=== PATIENT | female | born 1960 | race African-American/Black ===

== ENCOUNTER 2018-05-15 15:15 | Emergency (ER) | payer MEDICAID ==
[~2018-05-15] VITALS: Ht 149.9 cm; Wt 75.0 kg
[2018-05-15 15:56] VITALS: BP 138/89
== END 2018-05-15 23:07 | disposition left against medical advice (07) ==
LOC: ER 15:15
DX: M54.5 Low back pain (principal); R22.42 Localized swelling, mass and lump, left lower limb
CPT/HCPCS: 99281

== ENCOUNTER 2019-09-10 16:51 | Emergency (ER) | payer MEDICAID ==
[~2019-09-10] VITALS: Ht 160 cm; Wt 65.0 kg
[2019-09-10] MEDS ORDERED: KETOROLAC 60MG/2ML VIAL IM ONE (17:30)
[2019-09-10 17:46] VITALS: BP 135/69
== END 2019-09-10 18:28 | disposition home or self-care (01) ==
LOC: ER 16:51
DX: M25.572 Pain in left ankle and joints of left foot (principal); M85.872 Other specified disorders of bone density and structure, left ankle and foot; I10 Essential (primary) hypertension; F12.10 Cannabis abuse, uncomplicated
CPT/HCPCS: 73610; 96372; 99283; J1885

== ENCOUNTER 2021-07-06 15:16 | Emergency (ER) | payer MEDICAID ==
[~2021-07-06] VITALS: Ht 149.9 cm; Wt 61.0 kg
[2021-07-06] MEDS ORDERED: DIPH25CA83 PO (17:12)
[2021-07-06] MEDS ORDERED: CEPH500C2 PO (17:12)
[2021-07-06] MEDS ORDERED: HYDR453.3 TP (17:12)
[2021-07-06] MEDS ORDERED: METHYLPREDNISOLONE SOD SUCC 125 MG/2 ML VIAL IM NR (17:15)
[2021-07-06 17:22] VITALS: BP 140/78
== END 2021-07-06 17:22 | disposition home or self-care (01) ==
LOC: ER 15:16
DX: S00.86XA Insect bite (nonvenomous) of other part of head, initial encounter (principal); L03.113 Cellulitis of right upper limb; I10 Essential (primary) hypertension; F12.10 Cannabis abuse, uncomplicated; W57.XXXA Bitten or stung by nonvenomous insect and other nonvenomous arthropods, initial encounter; Y93.89 Activity, other specified; Y92.89 Other specified places as the place of occurrence of the external cause; Y99.8 Other external cause status; Z88.6 Allergy status to analgesic agent
CPT/HCPCS: 96372; 99283; J2930

== ENCOUNTER 2023-08-06 11:19 | Emergency (ER) | payer MEDICAID, OTHER ==
[~2023-08-06] VITALS: Ht 149.9 cm; Wt 57.0 kg
[~2023-08-06 11:19] MED LIST: CEPH500C2 PO; DIPH25CA83 PO; HYDR453.3 TP
[2023-08-06 11:44] VITALS: BP 153/84; PULSE 90; RESP 18; TEMP 98.4; O2SAT 96
[2023-08-06] MEDS ORDERED: ACETAMINOPHEN 650MG/20.3ML UDC PO ONE (12:30)
[2023-08-06] MEDS ORDERED: CYCL25PO15 MT (12:44)
[2023-08-06] MEDS ORDERED: ACET-2708 MT (12:44)
== END 2023-08-06 13:22 | disposition home or self-care (01) ==
LOC: ER 11:39
DX: M25.551 Pain in right hip (principal); F12.10 Cannabis abuse, uncomplicated; Z88.6 Allergy status to analgesic agent
CPT/HCPCS: 99282

== ENCOUNTER 2023-08-13 10:19 | Emergency (ER) | payer MEDICAID, OTHER ==
[~2023-08-13] VITALS: Ht 149.9 cm; Wt 65.0 kg
[~2023-08-13 10:19] MED LIST changes: +ACET-2708 MT; +CYCL25PO15 MT
[2023-08-13 10:23] VITALS: O2SAT 99
[2023-08-13] MEDS ORDERED: KETOROLAC 30MG/ML VIAL IM ONE (11:00)
[2023-08-13] MEDS ORDERED: T3 PO (11:42)
[2023-08-13 12:09] VITALS: BP 138/67; PULSE 72; RESP 16; TEMP 98
== END 2023-08-13 12:09 | disposition home or self-care (01) ==
LOC: ER 10:19
DX: M79.604 Pain in right leg (principal); F12.10 Cannabis abuse, uncomplicated; I10 Essential (primary) hypertension; Z88.6 Allergy status to analgesic agent; Z98.890 Other specified postprocedural states
CPT/HCPCS: 96372; 99283; J1885; Z7610 ×3

== ENCOUNTER 2024-07-10 03:11 | Emergency (ER) | payer MEDICAID ==
[~2024-07-10] VITALS: Ht 157.5 cm; Wt 52.0 kg
[~2024-07-10 03:11] MED LIST changes: +T3 PO
[2024-07-10 03:13] VITALS: O2SAT 100
[2024-07-10] MEDS: FAMOTIDINE 20MG TABLET PO SCH (04:08)
[2024-07-10] MEDS: MAGNESIUM/ALUMINUM HYDROXIDE/SIMETHICONE 30ML UDC PO STA (04:08)
[2024-07-10] MEDS: ONDANSETRON 4MG ODT PO STA (04:08)
[2024-07-10 04:11] LABS: CHLORIDE 104 mEq/L (98-107); SODIUM 140 mEq/L (136-145)
[2024-07-10 04:12] LABS: CARBON DIOXIDE 25 mEq/L (21-32)
[2024-07-10 04:13] LABS: CALCIUM 9.6 mg/dL (8.7-10.4)
[2024-07-10 04:17] LABS: GLUCOSE 92 mg/dL (70-105)
[2024-07-10 04:18] LABS: ETHANOL BLOOD 40 mg/dL (<10); UREA NITROGEN BLOOD 10 mg/dL (9-23)
[2024-07-10 04:19] LABS: ALANINE AMINOTRANSFERASE 27 IU/L (10-49); ALBUMIN 4.9 g/dL (3.2-4.8); ASPARTATE AMINOTRANSFERASE 22 IU/L (<34)
[2024-07-10 04:20] LABS: BILIRUBIN DIRECT 0.1 mg/dL (<=3.0); BILIRUBIN TOTAL 0.5 mg/dL (0.1-1.0)
[2024-07-10 04:21] LABS: PROTHROMBIN TIME 10.9 sec (9.6-11.0)
[2024-07-10 05:17] LABS: CREATININE 0.9 mg/dL (0.6-1.0)
[2024-07-10] MEDS: SODIUM CHLORIDE 0.9% 1,000 ML IV ONE (05:30)
[2024-07-10 06:33] LABS: BASOPHILS % 0.6 % (0.0-2.0); EOSINOPHILS % 3.1 % (0.0-5.0); HEMATOCRIT. 45.4 % (36.0-48.0); HEMOGLOBIN. 14.9 g/dL (12.0-16.0); LYMPHOCYTES % 29.2 % (20.0-50.0); MEAN CORPUSCULAR HEMOGLOBIN 29.9 pg (28.0-32.0); MEAN CORPUSCULAR HGB CONC 32.9 g/dL (31.0-37.0); MEAN CORPUSCULAR VOLUME 90.8 fL (81.0-99.0); MEAN PLATELET VOLUME 9.3 fl (7.4-10.4); MONOCYTES % 7.4 % (2.0-8.0); NEUTROPHILS % 59.7 % (40.0-76.0); PLATELET 265 x1000/uL (130-400); RED CELL DISTRIBUTION WIDTH 14.7 % (11.6-14.6); WHITE BLOOD COUNT 11.9 x1000/uL (4.5-11.0)
[2024-07-10 08:00] VITALS: TEMP 36.61404
[2024-07-10] MEDS: ACETAMINOPHEN 325MG TABLET PO ONE (10:47)
[2024-07-10] MEDS ORDERED: MAG355OR21 MT (12:24)
[2024-07-10 12:30] VITALS: BP 133/72; PULSE 65; RESP 14; O2SAT 98
== END 2024-07-10 13:07 | disposition home or self-care (01) ==
LOC: ER 03:11
DX: K29.60 Other gastritis without bleeding (principal); F10.90 Alcohol use, unspecified, uncomplicated; J45.909 Unspecified asthma, uncomplicated; I10 Essential (primary) hypertension; Z98.890 Other specified postprocedural states; Z88.6 Allergy status to analgesic agent; Z79.899 Other long term (current) drug therapy; Y90.2 Blood alcohol level of 40-59 mg/100 ml
CPT/HCPCS: 80076; 80048; 80320; 83690; 85025; 85610; 36415; 74176; 96360; 96361; 99285; Q0162; J7030; G0480

== ENCOUNTER 2025-03-05 12:37 | Emergency (ER) | payer MEDICAID ==
[~2025-03-05] VITALS: Ht 167.6 cm; Wt 70.0 kg
[~2025-03-05 12:37] MED LIST changes: +MAG355OR21 MT
[2025-03-05 12:46] VITALS: O2SAT 100
[2025-03-05] MEDS: AMOXICILLIN/POTASSIUM CLAVULANATE 875/125MG TAB PO ONE (14:11)
[2025-03-05 14:43] LABS: EOSINOPHILS % 3.6 % (0.0-5.0); HEMATOCRIT. 43.7 % (36.0-48.0); HEMOGLOBIN. 14.3 g/dL (12.0-16.0); LYMPHOCYTES % 28.8 % (20.0-50.0); MEAN CORPUSCULAR HEMOGLOBIN 29.7 pg (28.0-32.0); MEAN CORPUSCULAR HGB CONC 32.6 g/dL (31.0-37.0); MEAN CORPUSCULAR VOLUME 90.9 fL (81.0-99.0); MEAN PLATELET VOLUME 7.6 fl (7.4-10.4); MONOCYTES % 8.5 % (2.0-8.0); NEUTROPHILS % 58.1 % (40.0-76.0); PLATELET 269 x1000/uL (130-400); RED BLOOD CELL COUNT 4.81 mill/uL (4.2-5.4); RED CELL DISTRIBUTION WIDTH 15.7 % (11.6-14.6); WHITE BLOOD COUNT 9.6 x1000/uL (4.5-11.0)
[2025-03-05 15:01] LABS: D-DIMER 0.43 mg/L FEU (<0.50); PROTHROMBIN TIME 10.7 sec (9.6-11.0)
[2025-03-05 15:39] LABS: CHLORIDE 102 mEq/L (98-107); POTASSIUM 3.9 mEq/L (3.5-5.1); SODIUM 139 mEq/L (136-145)
[2025-03-05 15:40] LABS: CALCIUM 8.9 mg/dL (8.7-10.4); CARBON DIOXIDE 31 mEq/L (21-32)
[2025-03-05 15:45] LABS: CREATININE 0.9 mg/dL (0.6-1.0); GLUCOSE 175 mg/dL (70-105)
[2025-03-05 15:46] LABS: UREA NITROGEN BLOOD 11 mg/dL (9-23)
[2025-03-05 15:47] LABS: ALANINE AMINOTRANSFERASE 18 IU/L (10-49); ALBUMIN 4.1 g/dL (3.2-4.8); ASPARTATE AMINOTRANSFERASE 17 IU/L (<34); BILIRUBIN DIRECT 0.1 mg/dL (<=3.0)
[2025-03-05 15:48] LABS: BILIRUBIN TOTAL 0.7 mg/dL (0.1-1.0); PROTEIN TOTAL 6.6 g/dL (6.0-8.3)
[2025-03-05 15:58] LABS: TROPONIN I HIGH SENSITIVITY < 4 ng/L (3.0-34)
[2025-03-05] MEDS: DIPHENHYDRAMINE 25MG CAPSULE PO SCH (16:09)
[2025-03-05] MEDS: ACETAMINOPHEN 325MG TABLET PO ONE (16:09)
[2025-03-05 19:00] VITALS: BP 133/87; PULSE 76; RESP 19; TEMP 36.4; O2SAT 100
[2025-03-05] MEDS ORDERED: AMOX1TAB16 MT (19:03)
== END 2025-03-05 20:59 | disposition home or self-care (01) ==
LOC: ER 12:37
DX: S71.151A Open bite, right thigh, initial encounter (principal); R07.89 Other chest pain; E11.9 Type 2 diabetes mellitus without complications; I10 Essential (primary) hypertension; E78.00 Pure hypercholesterolemia, unspecified; Z88.6 Allergy status to analgesic agent; W54.0XXA Bitten by dog, initial encounter; Y93.89 Activity, other specified; Y92.89 Other specified places as the place of occurrence of the external cause; Y99.8 Other external cause status
CPT/HCPCS: 99285; 71045; 80076; 80048; 83690; 85025; 85379; 85610; 84484; 36415; 93005; Q0163

== ENCOUNTER 2025-10-06 15:27 | Emergency (ER) | payer MEDICAID ==
[~2025-10-06] VITALS: Ht 149.9 cm; Wt 62.0 kg
[~2025-10-06 15:27] MED LIST changes: +AMOX1TAB16 MT
[2025-10-06 15:32] VITALS: O2SAT 100
[2025-10-06] MEDS: ACETAMINOPHEN 500MG TABLET PO ONE ×2 (17:52→19:22)
[2025-10-06 18:12] LABS: CLARITY URINE CLEAR (CLEAR); COLOR URINE YELLOW (YELLOW); GLUCOSE URINE NEGATIVE (NEGATIVE); KETONES URINE NEGATIVE (NEGATIVE); LEUKOCYTE ESTERASE URINE NEGATIVE (NEGATIVE); NITRITE URINE NEGATIVE (NEGATIVE); OCCULT BLOOD URINE NEGATIVE (NEGATIVE); PH URINE 5.5 (4.5-8.0); PROTEIN URINE NEGATIVE (NEGATIVE); SPECIFIC GRAVITY URINE 1.025 (1.005-1.030); UROBILINOGEN URINE 1.0 E.U./dL (0.2-1.0)
[2025-10-06 18:17] LABS: BASOPHILS % 1.4 % (0.0-2.0); EOSINOPHILS % 4.6 % (0.0-5.0); HEMATOCRIT. 43.0 % (36.0-48.0); HEMOGLOBIN. 14.0 g/dL (12.0-16.0); LYMPHOCYTES % 33.9 % (20.0-50.0); MEAN PLATELET VOLUME 7.6 fl (7.4-10.4); MONOCYTES % 9.1 % (2.0-8.0); NEUTROPHILS % 51.0 % (40.0-76.0); PLATELET 343 x1000/uL (130-400); RED BLOOD CELL COUNT 4.79 mill/uL (4.2-5.4); RED CELL DISTRIBUTION WIDTH 15.1 % (11.6-14.6)
[2025-10-06 18:31] LABS: CREATININE 0.9 mg/dL (0.6-1.0); UREA NITROGEN BLOOD 9 mg/dL (9-23)
[2025-10-06 18:33] LABS: ASPARTATE AMINOTRANSFERASE 16 IU/L (<34); BILIRUBIN DIRECT 0.1 mg/dL (<=3.0); BILIRUBIN TOTAL 0.6 mg/dL (0.1-1.0); PROTEIN TOTAL 6.7 g/dL (6.0-8.3)
[2025-10-06] MEDS ORDERED: TOPUD MT (19:11)
[2025-10-06] MEDS ORDERED: IBUP-2437 MT (19:11)
[2025-10-06 19:23] VITALS: BP 145/80; PULSE 90; RESP 17; TEMP 36.7; O2SAT 99
[2025-10-06 19:29] LABS: INFLUENZA TYPE A Presumptive Negative (Pres. Neg.)
[2025-10-06 19:30] LABS: INFLUENZA TYPE B Presumptive Negative (Pres. Neg.); RESPIRATORY SYNCYTIAL VIRUS Not Detected (Not Detectd)
== END 2025-10-06 19:23 | disposition home or self-care (01) ==
LOC: ER 15:27
DX: S39.012A Strain of muscle, fascia and tendon of lower back, initial encounter (principal); B34.9 Viral infection, unspecified; E78.00 Pure hypercholesterolemia, unspecified; I10 Essential (primary) hypertension; Z20.822 Contact with and (suspected) exposure to COVID-19; Z88.6 Allergy status to analgesic agent; X58.XXXA Exposure to other specified factors, initial encounter; Y93.89 Activity, other specified; Y92.89 Other specified places as the place of occurrence of the external cause; Y99.8 Other external cause status
CPT/HCPCS: 36415; 71045; 80048; 80076; 81003; 85025; 87420; 87426; 87804; 99284